=== PATIENT | male | born 1985 ===

== ENCOUNTER 2023-08-07 05:40 | Day surgery (SDC) | payer OTHER ==
[2023-07-31 09:26] LABS: URINE APPEARANCE Clear; URINE BILIRRUBIN Negative (NEGATIVE); URINE BLOOD Negative; URINE COLOR Yellow; URINE GLUCOSE Negative (NEGATIVE); URINE LEUKOCYTE Negative; URINE NITRATE Negative; URINE PROTEIN Negative (NEGATIVE); URINE UROBILINOGEN 0.2 E.U./dl
[2023-07-31 09:27] LABS: HEMATOCRIT 49.3 % (39.0-48.0); HEMOGLOBIN 16.7 g/dL (13-16.00); MEAN CELL VOLUME 90.4 fL (80.0-100.00); MEAN CORPUSCULAR HEMOGLOBIN 30.7 pg (27.00-32.0); PLATELET COUNT 252 K/uL (150-450); RED BLOOD COUNT 5.45 M/uL (4.00-6.00); RED CELL DISTRIBUTION WIDTH 13.5 % (11.5-14.5)
[2023-07-31 09:54] LABS: CALCIUM 10.1 mg/dL (8.5-10.1); CREATININE SERUM 0.86 mg/dL (0.70-1.30); GFR 101.2; POTASSIUM 4.05 mEq/L (3.5-5.1)
[2023-07-31 10:10] LABS: INR 1.05; PARTIAL THROMBOPLASTIN TIME 29.1 SECONDS (22.0-34.0)
[2023-07-31 10:11] LABS: URINE EPITHELIAL CELLS 0.3 uL (0.0-38.8); URINE RBC 0.4 uL (0.0-20.8); URINE WBC 0.9 uL (0.0-23.2)
[~2023-08-07] VITALS: Ht 175.3 cm; Wt 76.2 kg
[2023-08-07] MEDS ORDERED: CEFTRIAXONE SODIUM 2,000 MG VIAL ONE (07:25)
[2023-08-07] MEDS ORDERED: ENOXAPARIN SODIUM 40 MG/0.4 ML SYRINGE SUBCUTANEO ONE ×2 (07:25→12:30)
[2023-08-07] MEDS ORDERED: BUPIVACAINE HCL/PF 0.5% 30ML ML ONE (07:25)
[2023-08-07] MEDS ORDERED: METRONIDAZOLE/SODIUM CHLORIDE 500 MG/100 ML PIGGYBACK IV ONE ×2 (07:33→12:30)
[2023-08-07] MEDS ORDERED: SUGAMMADEX SODIUM 200 MG/2 ML VIAL IV ONE ×2 (09:07→12:30)
[2023-08-07] MEDS ORDERED: NEURONTIN300 MG PO (09:36)
[2023-08-07] MEDS ORDERED: CELEBREX200MG PO (09:36)
[2023-08-07] MEDS ORDERED: COLACE100 MG PO (09:36)
[2023-08-07] MEDS ORDERED: PERCOCET 5-3251 EACH PO (09:36)
[2023-08-07] MEDS ORDERED: CEFTRIAXONE SODIUM 2,000 MG VIAL IV ONE (12:30)
[2023-08-09] MEDS ORDERED: BUPIVACAINE HCL 30 ML VIAL IJ ONE (15:30)
== END 2023-08-07 13:35 | disposition home or self-care (01) ==
LOC: CIR.AMB 05:40
PROVIDERS: ATTEND Surgery
DX: K40.90 Unilateral inguinal hernia, without obstruction or gangrene, not specified as recurrent (principal); Z20.822 Contact with and (suspected) exposure to COVID-19; Z91.013 Allergy to seafood
CPT/HCPCS: 49650; C1781